=== PATIENT | female | born 1970 | race Caucasian/White ===

== ENCOUNTER 2023-05-13 15:45 | Outpatient (RCR) | payer OTHER, SELFPAY | END 2023-08-04 17:43 | disposition home or self-care (01) | PROVIDERS: PCP Family Medicine; Visit Provider Family Medicine | DX: M25.562 Pain in left knee (principal); G89.29 Other chronic pain; M70.52 Other bursitis of knee, left knee; M79.672 Pain in left foot; M25.552 Pain in left hip; M25.551 Pain in right hip; Z51.89 Encounter for other specified aftercare | CPT/HCPCS: 97110; 97140; 97162 ==

== ENCOUNTER 2024-03-06 10:26 | Outpatient (CLI) | payer OTHER, SELFPAY | END 2024-03-06 10:27 | disposition home or self-care (01) | LOC: NFLDREF 03-09 13:06 | PROVIDERS: PCP Family Medicine; Referring Provider Family Medicine; Visit Provider Physician Assistant | DX: R31.9 Hematuria, unspecified (principal); N39.0 Urinary tract infection, site not specified; R11.0 Nausea | CPT/HCPCS: 87086; 87186 ==